=== PATIENT | male | born 1970 | race Two or more races ===

== ENCOUNTER 2024-03-06 09:44 | Outpatient (AMB) | payer OTHER, SELFPAY ==
--- NOTE | 2024-03-06 09:47 | A.OFFVIS_ITS ---
Intake Visit Reasons: New Patient - Left Hip Intake Note: Prashant is a 53 year old female who presents today as a new patient with complaints of Left Hip Pain. Patient reports that he has had increasing left hip pain for about a year now. The pain is felt in the groin and wraps around the lateral aspect of the hip. Occasionally has pain that radiates down the left leg. He takes Meloxicam or Advil occasionally for his pain. He has history of lumbar spine herniation and he thought that his hip pain came from this. Allergies No Known Allergies Allergy (Verified 03/06/24 09:59) HPI HPI New Patient - Left Hip: Details: Prashant is a 53 year old female who presents today as a new patient with complaints of Left Hip Pain. Patient reports that he has had increasing left hip pain for about a year now. The pain is felt in the groin and wraps around the lateral aspect of the hip. Occasionally has pain that radiates down the left leg. He takes Meloxicam or Advil occasionally for his pain. He has history of lumbar spine herniation and he thought that his hip pain came from this. 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 He has been dealing with pain off and on for many years but it has gotten to the point where he feels discomfort almost every day. He describes the pain as mostly being anterior hip extending down medial thigh but also with some back and lateral thigh pain. [facility] Surgical History (Updated 03/06/24 @ 10:00 by Linnette Kahn CMA) H/O right wrist surgery Physical Exam Extrem Other: Healthy well muscled gentleman with a normal gait. He has restricted internal rotation while in flexion bilaterally with a minimally painful impingement test on the left. Results Reviewed Results Reviewed: I personally reviewed relevant radiographs. 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 We discussed surgical versus nonsurgical options. We reviewed some exercises and discussed injections and specifically steroids versus PRP. I think it is reasonable to start with a steroid injection and see if he benefits from this and for how long and expectation would be that if he does benefit he engage in closed-chain strengthening. Orders: Orders XR pelvis 1-2V Today M25.559 - Pain in unspecified hip Coding Level of Care Code New Pt Level 3 (34032) Diagnoses Arthritis of left hip M16.12
== END 2024-03-06 10:43 | disposition home or self-care (01) ==
PROVIDERS: PCP Internal Medicine; Visit Provider Orthopaedic Surgery
DX: M16.12 Unilateral primary osteoarthritis, left hip (principal)
CPT/HCPCS: 99203

== ENCOUNTER 2024-03-06 15:02 | Outpatient (REF) | payer OTHER, SELFPAY ==
--- NOTE | ~2024-03-06 | XR_ITS ---
EXAMINATION: XR HIP, LEFT Pelvis CLINICAL INFORMATION: M25.552 - Pain in left hip COMPARISON: None available. TECHNIQUE: AP of the pelvis and frog-leg lateral view of the left hip FINDINGS: Left hip and pelvis: Left hip: Severe osteoarthritis with severe joint space narrowing and prominent subchondral cysts or on the acetabular side of the joint superolaterally. There is at least mild osteoarthritis of the right hip with mild joint space narrowing laterally and probable small subchondral cysts. Remaining bone and joints in the pelvis normal. XR/XR hip LT min 2V IMPRESSION: Severe osteoarthritis of the left hip. Mild osteoarthritis of the right hip Electronically signed by: Liam Chopra MD 03/12/2024 10:57 AM [facility]
== END 2024-03-06 15:03 | disposition home or self-care (01) ==
LOC: HO.HOSX 15:02
PROVIDERS: Visit Provider Orthopaedic Surgery
DX: M25.552 Pain in left hip (principal)
CPT/HCPCS: 73502

== ENCOUNTER 2024-03-31 09:35 | Outpatient (AMB) | payer OTHER, SELFPAY ==
--- NOTE | 2024-03-31 09:59 | A.OFFVIS_ITS ---
Vital Signs 03/31/24 10:00 Height 5 ft 8 in BP 154/79 H Blood Pressure Location Lt brachial Position Sitting Respiration 16 Pulse 85 Pulse Source Pulse Oximeter Pulse Oximetry (%) 95 Oxygen Delivery Method Room Air Intake Visit Reasons: Left hip inj Allergies No Known Allergies Allergy (Verified 03/31/24 10:02) Medication List - Last Reconciled 03/31/24 by Marti Lee LPN No Known Home Meds HPI HPI Left hip inj: Details: 53-year-old male who presents today to the office for a left hip injection. Denies any recent cough, cold, infection, fever or other significant changes in medical history since last office visit.? [facility] Surgical History (Updated 03/06/24 @ 10:00 by Linnette Kahn CMA) H/O right wrist surgery Review of Systems Const All systems reviewed & are unremarkable except as noted in HPI and below Physical Exam Vital Signs: Last Vital Signs Pulse 85 03/31/24 10:00 Resp 16 03/31/24 10:00 BP 154/79 H 03/31/24 10:00 Pulse Ox 95 03/31/24 10:00 Oxygen Delivery Method Room Air 03/31/24 10:00 General: Appears afebrile. Alert and oriented. Mood and affect appropriate. Follows and participates in conversation appropriately. Respiratory effort is unlabored. Able to transition from sit to stand unassisted. Ambulates with bilaterally normal heel strike and toe off. Office Procedures AMB Joint Injection/Aspiration Joint Injection/Aspiration Details: Left intraarticular hip injection, US guided Primary Site: other (Left hip) Prep: site was prepped using sterile technique Injected: 40 mg of, Kenalog, with 3 mL of (ropivacaine 0.25% ) and 1% plain lidocaine Approach Used: anterolateral Procedure: The patient tolerated the procedure well Coding Details: An ultrasound image of the injection was taken and stored in the permanent record. - Glenohumeral/Tronchanteric Bursa/Intraarticular (Left hip, US guided) Procedure code (CPT) selection complete Results Reviewed Results Reviewed: No imaging is available for review. Assessment & Plan Assessment & Plan (1) Arthritis of left hip: Code(s): M16.12 - Unilateral primary osteoarthritis, left hip Category: Medical Plan Patient is status post left intraarticular hip injection, US guided. Patient tolerated procedure well and was discharged home in stable condition with discharge instructions.? All questions were answered. Follow-up as needed. Scribed for Dr. Falk by Francisco Rowell, medical technologist, on 03/31/2024. I, Dr. Falk, have personally reviewed and agree with the information entered by the scribe. Coding Level of Care Code Procedure Only Diagnoses Arthritis of left hip M16.12 CPT Codes Coding - Joint 7: 02223 - Glenohumeral/Tronchanteric Bursa/Intraarticular ([id number])
[2024-03-31 10:00] VITALS: BP 154/79; PULSE 85; RESP 16; O2SAT 95
== END 2024-03-31 10:40 | disposition home or self-care (01) ==
PROVIDERS: PCP Internal Medicine; Visit Provider Internal Medicine
DX: M16.12 Unilateral primary osteoarthritis, left hip (principal)
CPT/HCPCS: 20611

== ENCOUNTER 2024-04-28 09:26 | Outpatient (AMB) | payer OTHER, SELFPAY ==
--- NOTE | 2024-04-28 09:29 | MHC.OFFVIS ---
Vital Signs 04/28/24 09:32 Height 5 ft 8 in Weight 183 lb BMI 27.8 BP 123/61 Blood Pressure Location Lt brachial Position Sitting Respiration 16 Pulse 75 Pulse Source Pulse Oximeter Pulse Oximetry (%) 98 Oxygen Delivery Method Room Air Intake Visit Reasons: s/p left hip inj Allergies No Known Allergies Allergy (Verified 04/28/24 09:32) Medication List - Last Reconciled 04/28/24 by Marti Lee LPN No Known Home Meds HPI HPI s/p left hip inj: Details: F/u after US guided intra-art injection does not think it helped much; maybe slightly with going up stairs. thinks it has moved to different locations since then. made pain worse for the first couple of days since then it has returned to baseline reports pain in the back and the quads today, his pain is mostly in the lower back/SIJ area at times he feels it in his left groin other times the quads and left knee feels painful On exam today: Appears afebrile. Alert and oriented. Mood and affect appropriate. Follows and participates in conversation appropriately. Respiratory effort is unlabored. Able to transition from sit to stand unassisted. Ambulates with bilaterally normal heel strike and toe off. [facility] Surgical History (Updated 03/06/24 @ 10:00 by Linnette Kahn CMA) H/O right wrist surgery Physical Exam Vital Signs: Last Vital Signs Pulse 75 04/28/24 09:32 Resp 16 04/28/24 09:32 BP 123/61 04/28/24 09:32 Pulse Ox 98 04/28/24 09:32 Oxygen Delivery Method Room Air 04/28/24 09:32 BMI result Body Mass Index 27.8 Assessment & Plan Assessment & Plan (1) Arthritis of left hip: Code(s): M16.12 - Unilateral primary osteoarthritis, left hip Category: Medical Plan 53-year-old male with severe left hip osteoarthritis status post corticosteroid injection under ultrasound guidance with no therapeutic benefit. Review of x-ray reveals significant arthritis with subchondral cyst formation. I had a long discussion with the patient regarding nonsurgical and surgical treatment options and their potential risks and benefits. He is not interested in further steroid injections. We discussed regenerative treatment options including intraosseous stem cell injection, intra-articular PRP injection and intra-articular micronized fat injection. I informed him we are able to provide him with an intra-articular PRP injection at our facility and if he wanted further biologic treatments, we can refer him out to a specialized center. He will consider proceeding with an intra-articular PRP injection to start with and inform us when he is ready to proceed. Coding Level of Care Code Est Pt Level 4 (11140) Diagnoses Arthritis of left hip M16.12
[2024-04-28 09:32] VITALS: BP 123/61; PULSE 75; RESP 16; O2SAT 98; BMI 27.8
== END 2024-04-28 10:00 | disposition home or self-care (01) ==
PROVIDERS: PCP Internal Medicine; Visit Provider Internal Medicine
DX: M16.12 Unilateral primary osteoarthritis, left hip (principal)
CPT/HCPCS: 99214

== ENCOUNTER → 2024-04-28 09:26 | Outpatient (BNVA) | payer OTHER, SELFPAY | PROVIDERS: PCP Internal Medicine; Visit Provider Internal Medicine ==

== ENCOUNTER 2024-06-26 08:04 | Outpatient (REF) | payer OTHER, SELFPAY ==
--- NOTE | ~2024-06-26 | MR_ITS ---
CLINICAL HISTORY: M16.12 - Unilateral primary osteoarthritis, left hip MR left hip without gadolinium Comparison: DX/SR - XR HIP LT MIN 2V - 03/06/24 09:45 EST Findings: No acute fracture or pathologic bone lesion. There is mild degenerative marrow edema within the left acetabulum and femoral head. Moderate periarticular osteophyte formation at the left hip joint. Severe left hip joint articular cartilage loss. No femoral neck bony protuberances. Normal acetabular version. Moderate left hip joint effusion. Severe diffuse degenerative hip labral tearing with multiple paralabral cysts. No tendon or muscle abnormalities. IMPRESSION: 1. Severe left hip osteoarthritis associated with articular cartilage loss and labral tearing. This document has been electronically signed by: Luis Sellers MD on 06/27/2024 13:19:03
--- OUTSIDE RECORDS SUMMARY | 2024-06-26 08:14 | XMS_ITS | Encounter Summary ---
Author Organization [facility] Address [address] [place] [address] Care Team Providers Care Sweeper Cleaner Industrial Name Role Phone Meg Alvarado MD Primary Care Provider Pepito Jay MD Primary Care Provider Elida sigala Encounter Details Date Type Department Care Team Description 02/17/2017 Release of Information Medical Records [address] [place] [address] Abstract, Provider Social History Tobacco Use Types Packs/Day Years Used Date Smoking Tobacco: Never Smokeless Tobacco: Never Alcohol Use Standard Drinks/Week Comments Yes 0 (1 standard drink = 0.6 oz pur e alcohol) 1-2 on occasion Sex Assigned at Date Recorded Not on file documented as of this encounter Plan of Treatment Not on file documented as of this encounter Visit Diagnoses Not on filedocumented in this encounter Care Teams Sweeper Cleaner Industrial Relationship Specialty Start Date End Date Meg Alvarado MD PCP - General Internal Medicine 06/28/16 08/23/21 Pepito Fernandez MD PCP - General Family Practice 08/24/21 documented as of this encounter
--- OUTSIDE RECORDS SUMMARY | 2024-06-26 08:14 | XMS_ITS | Clinical Summary ---
Author Organization [facility] Address [address] [place] [address] Care Team Providers Care Field Investigator Name Role Phone Pepito Fernandez MD Primary Care Provider Elida sigala Allergies Active Allergy Reactions Severity Noted Date Comments Seasonal Allergies 07/10/2016 Medications Medication Sig Dispensed Refills Start Date End Date Status cyclobenzaprine (FLEXERIL) 10 MG tablet Take 1 Tab by mouth every 8 hours as needed for Muscle spasms. 30 Tab 1 10/26/2016 Active ibuprofen (ADVIL,MOTRIN) 600 MG tablet TAKE 1 TAB BY MOUTH EVERY 6 HOURS NEEDED FOR PAIN FOR UP TO 30 DAYS. 60 Tab 1 04/17/2017 Active Active Problems Problem Noted Date COVID 08/18/2021 Overview: PCR at [facility] Hyperlipidemia 10/26/2016 Discogenic low back pain 10/26/2016 Lumbar herniated disc 07/10/2016 Lumbar radiculopathy 07/10/2016 Pulmonary eosinophilia 06/14/2006 ALLERGIC RHINITIS 10/29/2005 Immunizations Name Administration Dates Next Due Influenza (> 6 Months) 01/29/2006 Family History Medical History Relation Name Comments Cataract Father Stroke Father 84 Other Mother healthy as of Blindness Negative Hx Glaucoma Negative Hx Macular Degeneration Negative Hx Strabismus Negative Hx Relation Name Status Comments Father Mother Alive Social History Tobacco Use Types Packs/Day Years Used Date Smoking Tobacco: Never Smokeless Tobacco: Never Alcohol Use Standard Drinks/Week Comments Yes 0 (1 standard drink = 0.6 oz pur e alcohol) 1-2 on occasion Sex Assigned at Date Recorded Not on file Last Filed Vital Signs Vital Sign Reading Time Taken Comments Blood Pressure 112/80 07/05/2017 1:57 PM EDT Pulse 70 07/05/2017 1:57 PM EDT Temperature 37 ??C (98.6 ??F) 07/05/2017 1:57 PM EDT Respiratory Rate 16 07/05/2017 1:57 PM EDT Oxygen Saturation 95% 04/28/2008 3:40 PM EST Inhaled Oxygen Concentration - - Weight 82.4 kg (181 lb 11.2 oz) 07/05/2017 1:57 PM EDT Height 172.7 cm (5' 8 ) 07/05/2017 1:57 PM EDT Body Mass Index 27.63 07/05/2017 1:57 PM EDT Plan of Treatment Health Maintenance Due Date Last Done Comments Covid-19 Vaccine (#1) 06/07/1970 HEPATITIS C SCREENING 12/06/1987 TOBACCO CHECK/ADVISE 12/06/1987 DTAP/TDAP/TD (1 - Tdap) 1988 BASELINE HEALTH EXAM 40-64 07/10/2018 07/10/2016, COLON CANCER SCREENING 12/06/2019 SHINGLES VACCINE (1 of 2) 12/06/2019 CHOLESTEROL SCREENING 07/10/2021 07/10/2016, 010 INFLUENZA (#1) 2023 01/29/2006 BMI CHECK/ADVISE 04/16/2024 07/10/2016 PNEUMOCOCCAL VACCINE FOR HIG H RISK PATIENTS (#1) 2034 Care Teams Field Investigator Relationship Specialty Start Date End Date Pepito Fernandez MD PCP - General Family Practice 08/24/21
--- OUTSIDE RECORDS SUMMARY | 2024-06-26 08:14 | XMS_ITS ---
Author Name [facility] Organization Unknown Encounters Encounter Type Encounter Reason Primary Diagnosis Location Date Ambulatory [facility] [place] 03/03/2024
--- OUTSIDE RECORDS SUMMARY | 2024-06-26 08:14 | XMS_ITS | Encounter Summary ---
Author Organization [facility] Address [address] [place] [address] Care Team Providers Care Housing Counselor Name Role Phone Meg Alvarado MD Primary Care Provider Pepito Jay MD Primary Care Provider Elida sigala Encounter Details Date Type Department Care Team Description 07/10/2016 Release of Information Medical Records [address] [place] [address] Abstract, Provider Social History Tobacco Use Types Packs/Day Years Used Date Smoking Tobacco: Never Alcohol Use Standard Drinks/Week Comments Yes 0 (1 standard drink = 0.6 oz pur e alcohol) 1-2 on occasion Sex Assigned at Date Recorded Not on file documented as of this encounter Plan of Treatment Not on file documented as of this encounter Visit Diagnoses Not on filedocumented in this encounter Care Teams Housing Counselor Relationship Specialty Start Date End Date Meg Alvarado MD PCP - General Internal Medicine 06/28/16 08/23/21 Pepito Fernandez MD PCP - General Family Practice 08/24/21 documented as of this encounter
== END 2024-06-26 08:05 | disposition home or self-care (01) ==
LOC: HO.MRI 08:04
PROVIDERS: Visit Provider Orthopaedic Surgery
DX: M16.12 Unilateral primary osteoarthritis, left hip (principal)
CPT/HCPCS: 73721

== ENCOUNTER → 2024-06-26 08:04 | Outpatient (BNV) | payer OTHER, SELFPAY | PROVIDERS: Visit Provider Radiology Diagnostic Radiology | DX: M16.12 Unilateral primary osteoarthritis, left hip (principal) | CPT/HCPCS: 73721 ==